=== PATIENT | female | born 1990 | race Hispanic/Latino ===

== ENCOUNTER 2020-07-13 22:44 | Emergency (ER) | payer SELFPAY ==
[2020-07-13] MEDS ORDERED: Haloperidol Lactate 5 MG/ML VIAL ONE (22:50)
== END 2020-07-14 00:54 | disposition home or self-care (01) ==
LOC: ERS 22:44 → EDBD 22:44 → ERS 07-14 00:54
DX: F41.9 Anxiety disorder, unspecified (principal); F43.0 Acute stress reaction
CPT/HCPCS: 99283; J1630